=== PATIENT | male | born 1985 | race Caucasian/White ===

== ENCOUNTER 2016-12-23 18:24 | Emergency (ER) | payer OTHER ==
[~2016-12-23] VITALS: Ht 175.3 cm; Wt 80.0 kg
[2016-12-23 18:29] VITALS: BP 133/67
== END 2016-12-23 20:30 | disposition left against medical advice (07) ==
LOC: ER 18:24
DX: R11.2 Nausea with vomiting, unspecified (principal); Z53.21 Procedure and treatment not carried out due to patient leaving prior to being seen by health care provider